=== PATIENT | female | born 1985 | race Caucasian/White ===

== ENCOUNTER 2020-04-05 13:43 | Emergency (ER) | payer MEDICAID ==
[~2020-04-05] VITALS: Ht 157.5 cm; Wt 70.5 kg
[2020-04-05 14:15] VITALS: BP 136/86
[2020-04-05] MEDS ORDERED: ketorolac trometh inj. 60 MG/2 ML VIAL IM ONE (15:00)
[2020-04-05] MEDS ORDERED: ORPH100T2 PO (15:05)
== END 2020-04-05 15:24 | disposition home or self-care (01) ==
LOC: ER 13:43
DX: M62.838 Other muscle spasm (principal); M54.2 Cervicalgia; Z79.899 Other long term (current) drug therapy
CPT/HCPCS: 96372; 99283; J1885

== ENCOUNTER 2020-06-08 09:47 | Emergency (ER) | payer MEDICAID ==
[~2020-06-08] VITALS: Ht 157.5 cm; Wt 71.2 kg
[~2020-06-08 09:47] MED LIST: ORPH100T2 PO
[2020-06-08] MEDS ORDERED: normal saline 1000ML IV soln IVB ONE (10:20)
[2020-06-08] MEDS ORDERED: ondansetron/PF 4mg/2ml inj IV ONE (10:20)
[2020-06-08] MEDS ORDERED: aspirin 81mg tab.chew PO ONE (10:30)
[2020-06-08 11:03] LABS: EOSINOPHILS # (AUTO) 0.1 X10'3 (0-0.9); EOSINOPHILS % (AUTO) 1.9 % (0-6); HEMATOCRIT 36.6 % (35.0-45.0); LYMPHOCYTES # (AUTO) 1.8 X10'3 (1.1-4.8); LYMPHOCYTES % (AUTO) 39.5 % (21-51); MEAN CORPUSCULAR HEMOGLOBIN 29.2 PG (27.0-31.0); MEAN CORPUSCULAR HGB CONC 32.9 g/dL (33.0-36.5); MEAN CORPUSCULAR VOLUME 88.8 FL (78-98); MEAN PLATELET VOLUME 8.6 FL (7.4-10.4); MONOCYTES # (AUTO) 0.3 X10'3 (0-0.9); NEUTROPHILS # (AUTO) 2.4 X10'3 (1.8-7.7); NEUTROPHILS % (AUTO) 51.6 % (42-75); PLATELET COUNT 251 X10'3 (140-440); RED BLOOD COUNT 4.12 X10'6 (4.20-5.60); RED CELL DISTRIBUTION WIDTH 14.5 % (11.5-14.5); WHITE BLOOD COUNT 4.6 X10'3 (4.5-11.0)
[2020-06-08 11:17] LABS: D-DIMER 0.21 MG/L FEU (0-0.50)
[2020-06-08 11:22] LABS: CLARITY,URINE SLIGHTLY CLOUDY (Clear); COLOR,URINE YELLOW (Yellow); GLUCOSE, URINE NEGATIVE (Neg); KETONES,URINE NEGATIVE (Neg); LEUKOCYTE ESTERASE ,URINE NEGATIVE (Neg); NITRITES, URINE NEGATIVE (Neg); OCCULT BLOOD,URINE NEGATIVE (Neg); PROTEIN,URINE 30 mg/dl (Neg); URINE HCG NEGATIVE (NEG); UROBILINOGEN,URINE 0.2 E.U/dL (0.2-1.0)
[2020-06-08 11:24] LABS: UA COLLECTION TYPE CLN CATCH MIDSTREAM
[2020-06-08 11:28] LABS: ALANINE AMINOTRANSFERASE 21 U/L (12-78); ALBUMIN 3.5 G/DL (3.4-5.0); ALBUMIN/GLOBULIN RATIO 0.9 (1.1-1.5); ALKALINE PHOSPHATASE 64 IU/L (46-116); ANION GAP 9 (8-16); ASPARTATE AMINO TRANSFERASE 20 U/L (10-37); BILIRUBIN,TOTAL 0.3 MG/DL (0.1-1.0); BLOOD UREA NITROGEN 7 MG/DL (7-18); BUN/CREATININE RATIO 8.2 (6.6-38.0); CALCIUM 8.6 MG/DL (8.5-10.1); CHLORIDE 104 MMOL/L (99-107); CREATININE 0.85 MG/DL (0.40-0.90); GLUCOSE 75 MG/DL (70-104); LIPASE 179 U/L (73-393); POTASSIUM 4.1 MMOL/L (3.5-5.1); SODIUM 138 MMOL/L (135-145); TOTAL CARBON DIOXIDE 25.5 MMOL/L (24-32); TOTAL PROTEIN 7.3 G/DL (6.4-8.2); eGFR 78 ML/MIN
[2020-06-08 11:29] LABS: MUCUS STRANDS NONE SEEN /LPF (Neg); SQUAMOUS EPITHELIAL CELL,UR MANY /LPF (FEW); WBC,URINE 0-4 /HPF (0-4)
[2020-06-08 11:30] LABS: BACTERIA,URINE FEW /HPF (Neg); RBC,URINE 0-2 /HPF (0-2)
[2020-06-08] MEDS ORDERED: ondansetron 4mg rapidly disintigrating tab PO STA (12:39)
[2020-06-08] MEDS ORDERED: LIDOcaine Viscous 15ml cup MM ONE (12:40)
[2020-06-08] MEDS ORDERED: mag hydrox/Alum hydrox/simeth 30ml oral suspension PO ONE (12:40)
[2020-06-08] MEDS ORDERED: ketorolac trometh. 30mg/ml inj. IV ONE (12:40)
[2020-06-08] MEDS ORDERED: sucralfate 1 gm tablet PO ONE (12:40)
[2020-06-08 13:05] LABS: MONOTEST NEGATIVE (Neg)
[2020-06-08] MEDS ORDERED: ONDA4TAB6 PO (13:07)
[2020-06-08 13:24] VITALS: BP 124/69
== END 2020-06-08 13:25 | disposition home or self-care (01) ==
LOC: ER 09:47
DX: R10.12 Left upper quadrant pain (principal); R11.0 Nausea; R53.83 Other fatigue; Z87.440 Personal history of urinary (tract) infections; Z98.890 Other specified postprocedural states; Z79.899 Other long term (current) drug therapy
CPT/HCPCS: 36415; 80053; 81001; 81025; 83690; 84484; 85025; 85379; 85610; 86308; 93005; 96361; 96374; 96375; 99284; J1885; J2405; J7030